=== PATIENT | male | born 1940 | race Caucasian/White ===

== ENCOUNTER → 2017-08-22 | Outpatient (REF) | payer MEDICARE ==
[2017-08-22 15:53] LABS: BASO # 0.1 10^3/uL (0.0-0.2); BASO % 0.7 % (0.0-1.0); EOS # 0.1 10^3/uL (0.0-0.50); EOS % 1.5 % (0.0-3.0); HEMATOCRIT 44.6 % (42.0-52.0); HEMOGLOBIN 14.3 g/dl (13.5-17.5); IMMATURE GRANULOCYTE % 0.4 % (0-3.0); LYMPH % 12.8 % (24.0-44.0); MEAN CORPUSCULAR HEMOGLOBIN 29.6 pg (27.0-33.0); MEAN CORPUSCULAR HGB CONC 32.1 g/dl (32.0-36.5); MEAN CORPUSCULAR VOLUME 92.3 fl (80.0-96.0); MONO # 0.7 10^3/uL (0.0-0.8); NEUTROPHILS # 6.1 10^3/uL (1.8-7.7); NEUTROPHILS % 75.6 % (36.0-66.0); PLATELET COUNT, AUTOMATED 172 10^3/uL (150-450); RED BLOOD COUNT 4.83 10^6/uL (4.30-6.10); RED CELL DISTRIBUTION WIDTH 14.6 % (11.5-14.5); WHITE BLOOD COUNT 8.1 10^3/uL (4.0-10.0)
[2017-08-22 16:09] LABS: ANION GAP 8 MEQ/L (8-16); BLOOD UREA NITROGEN 22 MG/DL (7-18); C REACTIVE PROTEIN QUANTITATIV 0.35 MG/DL (0.00-0.30); CALCIUM LEVEL 9.4 MG/DL (8.8-10.2); CARBON DIOXIDE LEVEL 28 MEQ/L (21-32); CHLORIDE LEVEL 105 MEQ/L (98-107); CREATININE FOR GFR 1.04 MG/DL (0.70-1.30); GLOMERULAR FILTRATION RATE > 60.0 (>42); GLUCOSE, FASTING 88 MG/DL (70-100); POTASSIUM SERUM 4.4 MEQ/L (3.5-5.1); SODIUM LEVEL 141 MEQ/L (136-145)
[2017-08-22 16:18] LABS: ERYTHROCYTE SEDIMENTATION RATE 26 mm/hr (0-20)
== END ==
LOC: M SFHCPLAZ 11:34
DX: M86.9 Osteomyelitis, unspecified (principal)
CPT/HCPCS: 80048

== ENCOUNTER 2018-02-06 06:14 | Day surgery (SDC) | payer MEDICARE ==
[2018-02-05] MEDS: CEFUROXIME 1MG/0.1ML INTRACAMERAL INJ As Ordered ×2 (08:01)
[2018-02-06] MEDS: PROPARACAINE 0.5% OPHTH SOL 15ML OD ×2 (06:55)
[2018-02-06] MEDS: OFLOXACIN 0.3 % (OCUFLOX) OPTH SOL 5ML OD ×2 (06:57)
[2018-02-06] MEDS: TROPICAMIDE 1% OPHTH SOLN 2ML OD ×2 (06:59)
[2018-02-06] MEDS: PHENYLEPHRINE 2.5% OPHTH SOL 2ML OD ×2 (07:01)
[2018-02-06] MEDS ORDERED: MIDAZOLAM INJ 2 MG/2 ML VIAL (J2250) As Ordered ×2 (07:03)
[2018-02-06] MEDS ORDERED: fentaNYL 100 MCG/2 ML INJECTION (J3010) As Ordered ×2 (07:03)
[2018-02-06] MEDS: LIDOCAINE 0.75%/EPINEPHRINE 0.025% IN BSS 1ML SYR INTRACAMERAL (OR ONLY) As Ordered (08:00)
[2018-02-06] MEDS: POVIDONE-IODINE 5% OPHTH PREP SOL 30ML As Ordered ×2 (08:00)
[2018-02-06] MEDS: BALANCED SALT IRRIGATION SOLUTION 500ML BAG (FOR OR EYE MACHINE) As Ordered ×2 (08:00)
[2018-02-06] MEDS: DUOVISC (0.50ML VISCOAT/0.55ML PROVISC) OPHTH KIT As Ordered ×2 (08:01)
== END 2018-02-06 09:05 | disposition home or self-care (01) ==
LOC: M SDC 06:14
DX: H25.11 Age-related nuclear cataract, right eye (principal); Z98.890 Other specified postprocedural states; I10 Essential (primary) hypertension; I50.9 Heart failure, unspecified; R29.898 Other symptoms and signs involving the musculoskeletal system; M12.9 Arthropathy, unspecified; I89.0 Lymphedema, not elsewhere classified; N40.0 Benign prostatic hyperplasia without lower urinary tract symptoms; R32 Unspecified urinary incontinence; Z88.1 Allergy status to other antibiotic agents; Z91.048 Other nonmedicinal substance allergy status; Z79.899 Other long term (current) drug therapy; Z79.01 Long term (current) use of anticoagulants; Z86.14 Personal history of Methicillin resistant Staphylococcus aureus infection; Z87.442 Personal history of urinary calculi; Z92.3 Personal history of irradiation; Z85.46 Personal history of malignant neoplasm of prostate
CPT/HCPCS: 66984

== ENCOUNTER 2018-02-20 10:37 | Day surgery (SDC) | payer MEDICARE ==
[~2018-02-20 10:37] MED LIST: MIDAZOLAM INJ 2 MG/2 ML VIAL (J2250) As Ordered; fentaNYL 100 MCG/2 ML INJECTION (J3010) As Ordered
[2018-02-20] MEDS: PROPARACAINE 0.5% OPHTH SOL 15ML OS (11:35)
[2018-02-20] MEDS: OFLOXACIN 0.3 % (OCUFLOX) OPTH SOL 5ML OS (11:40)
[2018-02-20] MEDS: TROPICAMIDE 1% OPHTH SOLN 2ML OS (11:40)
[2018-02-20] MEDS: PHENYLEPHRINE 2.5% OPHTH SOL 2ML OS (11:40)
[2018-02-20] MEDS: LIDOCAINE 0.75%/EPINEPHRINE 0.025% IN BSS 1ML SYR INTRACAMERAL (OR ONLY) As Ordered (13:07)
[2018-02-20] MEDS: BALANCED SALT IRRIGATION SOLUTION 500ML BAG (FOR OR EYE MACHINE) As Ordered (13:07)
[2018-02-20] MEDS: POVIDONE-IODINE 5% OPHTH PREP SOL 30ML As Ordered (13:07)
[2018-02-20] MEDS: CEFUROXIME 1MG/0.1ML INTRACAMERAL INJ As Ordered (13:07)
[2018-02-20] MEDS: DUOVISC (0.50ML VISCOAT/0.55ML PROVISC) OPHTH KIT As Ordered (13:07)
== END 2018-02-20 14:00 | disposition home or self-care (01) ==
LOC: M SDC 10:37
DX: H25.12 Age-related nuclear cataract, left eye (principal); I50.9 Heart failure, unspecified; I11.0 Hypertensive heart disease with heart failure; B95.62 Methicillin resistant Staphylococcus aureus infection as the cause of diseases classified elsewhere; R29.898 Other symptoms and signs involving the musculoskeletal system; M12.9 Arthropathy, unspecified; I89.0 Lymphedema, not elsewhere classified; C61 Malignant neoplasm of prostate; N39.3 Stress incontinence (female) (male); Z88.6 Allergy status to analgesic agent; Z91.048 Other nonmedicinal substance allergy status; Z79.899 Other long term (current) drug therapy; Z79.01 Long term (current) use of anticoagulants; Z92.3 Personal history of irradiation; Z87.442 Personal history of urinary calculi
CPT/HCPCS: 66984

== ENCOUNTER → 2019-10-13 | Outpatient (REF) | payer MEDICARE ==
[~2019-10-13] MED LIST changes: +BACT800T5 PO; +CART180C3 PO; +CLIN150C14 PO; +DIGO0.123 PO; +ELIQ5TAB PO; +FURO40TA2 PO; +GABA-845 PO; +KLOR20TA42 PO; +LISI2.5T2 PO; +METO50TA7 PO; -MIDAZOLAM INJ 2 MG/2 ML VIAL (J2250) As Ordered; -fentaNYL 100 MCG/2 ML INJECTION (J3010) As Ordered
[2019-10-13 13:51] LABS: AMORPHOUS SEDIMENT SMALL (NEGATIVE); APPEARANCE, URINE CLOUDY (CLEAR); BACTERIA, URINE AUTO 2+ (NEGATIVE); BILIRUBIN, URINE AUTO NEGATIVE (NEGATIVE); BLOOD, URINE BLOOD 2+ (NEGATIVE); COLOR, URINE YELLOW (YELLOW); GLUCOSE, URINE (UA) AUTO NEGATIVE (NEGATIVE); KETONE, URINE AUTO NEGATIVE (NEGATIVE); LEUKOCYTE ESTERASE, URINE AUTO 3+ (NEGATIVE); NITRITE, URINE AUTO NEGATIVE (NEGATIVE); PROTEIN, URINE AUTO NEGATIVE (NEGATIVE); RBC, URINE AUTO 114 /HPF (0-3); SPECIFIC GRAVITY URINE AUTO 1.011 (1.002-1.035); SQUAMOUS EPITHELIAL CELL UR AU 0 /HPF (0-6); UROBILINOGEN, URINE AUTO 0.2 mg/dL (0.0-2.0); WBC, URINE AUTO TNTC /HPF (0-3)
[2019-10-13 14:01] LABS: BASO # 0.1 10^3/uL (0.0-0.2); BASO % 0.8 % (0.0-1.0); EOS # 0.2 10^3/uL (0.0-0.5); EOS % 1.7 % (0.0-3.0); HEMATOCRIT 47.8 % (42.0-52.0); HEMOGLOBIN 15.3 g/dl (13.5-17.5); LYMPH # 1.3 10^3/uL (1.5-5.0); LYMPH % 14.6 % (24.0-44.0); MEAN CORPUSCULAR HEMOGLOBIN 28.9 pg (27.0-33.0); MEAN CORPUSCULAR VOLUME 90.2 fl (80.0-96.0); MONO # 1.3 10^3/uL (0.0-0.8); MONO % 14.2 % (0.0-5.0); NEUTROPHILS # 6.2 10^3/uL (1.5-8.5); NEUTROPHILS % 68.2 % (36.0-66.0); PLATELET COUNT, AUTOMATED 190 10^3/uL (150-450); WHITE BLOOD COUNT 9.2 10^3/uL (4.0-10.0)
[2019-10-13 14:09] LABS: ALBUMIN 3.9 GM/DL (3.2-5.2); ALT/SGPT 30 U/L (12-78); BILIRUBIN,TOTAL 0.4 MG/DL (0.2-1.0); BLOOD UREA NITROGEN 25 MG/DL (7-18); C REACTIVE PROTEIN QUANTITATIV 0.76 MG/DL (0.00-0.30); CALCIUM LEVEL 10.2 MG/DL (8.8-10.2); CARBON DIOXIDE LEVEL 28 MEQ/L (21-32); CHLORIDE LEVEL 103 MEQ/L (98-107); GLOMERULAR FILTRATION RATE > 60.0 (>42); GLUCOSE, FASTING 88 MG/DL (70-100); SODIUM LEVEL 138 MEQ/L (136-145); TOTAL PROTEIN 8.1 GM/DL (6.4-8.2)
[2019-10-13 14:41] LABS: ERYTHROCYTE SEDIMENTATION RATE 9 mm/hr (0-20)
[2019-10-13 15:24] LABS: HEMOGLOBIN A1c 6.6 %
== END ==
LOC: M SFHCPLAZ 11:08
PROVIDERS: ATTEND Internal Medicine Infectious Disease
DX: M86.9 Osteomyelitis, unspecified (principal); N49.2 Inflammatory disorders of scrotum; Z79.899 Other long term (current) drug therapy
CPT/HCPCS: 36415; 80053; 81001; 83036; 85025; 85652; 86140; 87070; 87077; 87088; 87186; G0463

== ENCOUNTER → 2019-12-24 | Outpatient (REF) | payer MEDICARE ==
[2020-01-21 13:01] LABS: APPEARANCE, URINE CLEAR (CLEAR); BACTERIA, URINE AUTO NEGATIVE (NEGATIVE); BILIRUBIN, URINE AUTO NEGATIVE (NEGATIVE); BLOOD, URINE BLOOD NEGATIVE (NEGATIVE); COLOR, URINE YELLOW (YELLOW); GLUCOSE, URINE (UA) AUTO NEGATIVE (NEGATIVE); KETONE, URINE AUTO NEGATIVE (NEGATIVE); LEUKOCYTE ESTERASE, URINE AUTO TRACE (NEGATIVE); MUCUS, URINE SMALL (NEGATIVE); NITRITE, URINE AUTO NEGATIVE (NEGATIVE); PROTEIN, URINE AUTO NEGATIVE (NEGATIVE); RBC, URINE AUTO 2 /HPF (0-3); SPECIFIC GRAVITY URINE AUTO 1.009 (1.002-1.035); SQUAMOUS EPITHELIAL CELL UR AU 0 /HPF (0-6); UROBILINOGEN, URINE AUTO 0.2 mg/dL (0.0-2.0); WBC, URINE AUTO 7 /HPF (0-3)
== END ==
LOC: M SFHCPLAZ 16:07
PROVIDERS: ATTEND Internal Medicine Infectious Disease
DX: R30.0 Dysuria (principal)
CPT/HCPCS: 36415; 81001; 85025; 85652; 86140; 87088; 87186; G0463

== ENCOUNTER 2019-12-31 13:50 | Outpatient (CLI) | payer MEDICARE ==
[~2019-12-31 13:50] MED LIST changes: -LIDOCAINE 1% MDV 20ML VIAL As Ordered ONE
[2019-12-31] MEDS ORDERED: ERTAPENEM 1GM VIAL(INVanz) (J1335 PER 500MG) ONE (15:30)
[2019-12-31] MEDS ORDERED: ERTAPENEM 1GM VIAL(INVanz) (J1335 PER 500MG) As Ordered ONE (15:30)
== END 2019-12-31 16:20 | disposition home or self-care (01) ==
LOC: M INFU 13:50
PROVIDERS: ATTEND Internal Medicine Infectious Disease
DX: N45.4 Abscess of epididymis or testis (principal)
CPT/HCPCS: 36571; 76937; 96365; C1751; J1335; J1642; J1644

== ENCOUNTER → 2019-12-31 | Outpatient (CLI) | payer MEDICARE ==
[~2019-12-31] MED LIST changes: +LIDOCAINE 1% MDV 20ML VIAL As Ordered ONE
--- NOTE | 2020-02-11 08:58 | REP ---
MIDLINE CATHETER INSERTION WITH SITE-RITE: The procedure was performed under the direct supervision of Dr. Godwin. The risks and benefits of the procedure were explained to the patient and informed consent was obtained. PROCEDURE: The left basilic vein was localized using ultrasound guidance. The skin was prepped and draped in a sterile fashion. 1% lidocaine was used as a local anesthetic. Using ultrasound guidance, the basilic vein was cannulated and a 0.018 guidewire was inserted. The needle was removed and a 4/5 Uzbek dilator and peel-away sheath was inserted over the guidewire. A 4.5 Uzbek single lumen catheter was cut to a length of 13 cm. The dilator was removed and the catheter was inserted over the guidewire. The peel-away sheath was removed and the catheter was flushed with heparinized saline as per hospital protocol. The catheter was affixed to the skin and a sterile dressing was applied. The patient tolerated the procedure well and there were no immediate complications. SHALOM
== END ==
LOC: M RAD 13:50 → M IRPRO 13:50
PROVIDERS: ATTEND Internal Medicine Infectious Disease
DX: N45.4 Abscess of epididymis or testis (principal)

== ENCOUNTER 2021-01-16 16:01 | Emergency (ER) | payer MEDICARE ==
[~2021-01-16 16:01] MED LIST changes: -CLIN150C14 PO; +CLIN150C17 PO; +GABA-283 PO; -GABA-845 PO; -LISI2.5T2 PO; +LISI2.5T9 PO
[2021-01-16] MEDS ORDERED: MAGN400C PO (20:35)
--- NOTE | 2021-01-16 20:37 | REPVR ---
PROCEDURE INFORMATION: Exam: CT Abdomen And Pelvis Without Contrast Exam date and time: 01/16/2021 7:59 PM Age: 80 years old Clinical indication: Abdominal pain; Additional info: Bilateral flank pain/urinary retention TECHNIQUE: Imaging protocol: Computed tomography of the abdomen and pelvis without contrast. Radiation optimization: All CT scans at this facility use at least one of these dose optimization techniques: automated exposure control; mA and/or kV adjustment per patient size (includes targeted exams where dose is matched to clinical indication); or iterative reconstruction. COMPARISON: No relevant prior studies available. FINDINGS: Lungs: Bibasilar atelectasis. Heart: Cardiomegaly. Liver: There are cysts in the liver measuring up to 1.9 cm located in segment 2 of the left lobe. No complex features demonstrated. No follow-up suggested. Liver otherwise unremarkable. Gallbladder and bile ducts: Sludge/gravel layering dependently in the gallbladder along with punctate calculi. No evidence of cholecystitis. Pancreas: Normal. No ductal dilation. Spleen: Normal. No splenomegaly. Adrenal glands: There is bilateral adrenal hyperplasia. Kidneys and ureters: Bilateral nonobstructive calculi in the kidneys. Bilateral moderate hydroureteronephrosis to the level of the UV junctions. No obstructing mass or calculus demonstrated. Simple renal cysts measure up to 6.8 cm in the left kidney. No follow-up suggested. Stomach and bowel: There is increased feces throughout the colon consistent with constipation. Impacted feces in the rectum with mild thickening of the rectal wall which may indicate stercoral colitis. Moderate diverticulosis is present in the distal colon. No diverticulitis. Appendix: No evidence of appendicitis. Intraperitoneal space: Unremarkable. No free air. No significant fluid collection. Vasculature: The aortoiliac vessels demonstrate mild atherosclerotic calcification. Lymph nodes: Unremarkable. No enlarged lymph nodes. Urinary bladder: Suprapubic catheter demonstrated in the urinary bladder. Moderate bladder distention. Otherwise unremarkable as visualized. Reproductive: Status post prostatectomy. Soft tissue fullness in the prostatic bed demonstrated. Clinical correlation to exclude recurrence suggested. Bones/joints: Lumbarized 1st sacral segment. Severe central spinal stenosis L2-L3, moderate to severe central spinal stenosis L3-L4, moderate central spinal stenosis L4-L5. Bulging annulus L5-S1. Marked resorptive changes in the right femoral head with lateral subluxation of the proximal femur from the acetabulum. Shallow acetabulum demonstrating marked degenerative change. The spine demonstrates moderate degenerative changes. Soft tissues: Unremarkable. Other findings: Osteoporosis. IMPRESSION: 1. Cardiomegaly. 2. There are cysts in the liver as described above. No complex features demonstrated. No follow-up suggested. Liver otherwise unremarkable. 3. Sludge/gravel layering dependently in the gallbladder along with punctate calculi. No evidence of cholecystitis. 4. There is bilateral adrenal hyperplasia. 5. Bilateral nonobstructive calculi in the kidneys. 6. Bilateral moderate hydroureteronephrosis to the level of the UV junctions. No obstructing mass or calculus demonstrated. Moderate bladder distention status post placement of a suprapubic catheter. Bladder outlet obstruction to be considered clinically. 7. Status post prostatectomy. Soft tissue fullness in the prostatic bed demonstrated. Clinical correlation to exclude recurrence suggested. 8. There is increased feces throughout the colon consistent with constipation. Impacted feces in the rectum with mild thickening of the rectal wall which may indicate stercoral colitis. 9. Moderate diverticulosis is present in the distal colon. No diverticulitis. COMMENTS: Consistent with the [employer]'s Incidental Findings Committee white paper (J Am Emma Radiol 2018): Any incidental renal lesion less than 1 cm or classified as too small to characterize, or any incidental cystic renal lesion characterized as simple-appearing, is likely benign. No follow-up imaging is recommended for these lesions per consensus recommendations based on imaging criteria. Electronically signed by: Harvinder Mancini On 01/16/2021 20:37:25 PM
[2021-01-16] MEDS ORDERED: CIPR-249 PO (22:21)
[2021-01-16] MEDS ORDERED: CIPROFLOXACIN 500MG TABLET PO ONE (22:25)
[2021-01-16 22:50] VITALS: BP 140/69
--- NOTE | 2021-01-18 08:21 | ED PDOC ---
Post-Departure Follow-Up dr brody wilkins faxed formal report of ct abd/p for fu Linda Can MD Jan 18, 2021 08:21
== END 2021-01-16 22:53 | disposition home or self-care (01) ==
LOC: M ED 16:01 → EDBD 16:01 → M ED 22:53
DX: T83.098A Other mechanical complication of other urinary catheter, initial encounter (principal); I10 Essential (primary) hypertension; Z85.46 Personal history of malignant neoplasm of prostate; Z87.442 Personal history of urinary calculi; I51.7 Cardiomegaly; N20.0 Calculus of kidney; N13.1 Hydronephrosis with ureteral stricture, not elsewhere classified; N28.1 Cyst of kidney, acquired; K76.89 Other specified diseases of liver; K80.20 Calculus of gallbladder without cholecystitis without obstruction; E27.8 Other specified disorders of adrenal gland; K56.41 Fecal impaction; K57.30 Diverticulosis of large intestine without perforation or abscess without bleeding; Z79.01 Long term (current) use of anticoagulants; Z79.899 Other long term (current) drug therapy; Z91.89 Other specified personal risk factors, not elsewhere classified; Z88.6 Allergy status to analgesic agent

== ENCOUNTER 2021-02-06 13:50 | Outpatient (RCR) | payer MEDICARE ==
[~2021-02-06 13:50] MED LIST changes: +CIPR-249 PO; -KLOR20TA42 PO; +MAGN400C PO; +POTA-141 PO
== END 2021-02-16 ==
LOC: M PT 13:50
PROVIDERS: ATTEND Family Medicine
DX: I89.0 Lymphedema, not elsewhere classified (principal)

== ENCOUNTER 2021-03-07 12:07 | Outpatient (RCR) | payer MEDICARE | END 2021-03-19 | LOC: M PT 12:07 | PROVIDERS: ATTEND Family Medicine | DX: I89.0 Lymphedema, not elsewhere classified (principal) ==

== ENCOUNTER → 2021-08-22 | Outpatient (REF) | payer MEDICARE ==
[2021-08-22 14:15] LABS: APPEARANCE, URINE CLOUDY (CLEAR); BACTERIA, URINE AUTO 3+ (NEGATIVE); BILIRUBIN, URINE AUTO NEGATIVE (NEGATIVE); BLOOD, URINE BLOOD 3+ (NEGATIVE); COLOR, URINE YELLOW (YELLOW); GLUCOSE, URINE (UA) AUTO NEGATIVE (NEGATIVE); KETONE, URINE AUTO NEGATIVE (NEGATIVE); LEUKOCYTE ESTERASE, URINE AUTO 3+ (NEGATIVE); MUCUS, URINE SMALL (NEGATIVE); NITRITE, URINE AUTO POSITIVE (NEGATIVE); PROTEIN, URINE AUTO 1+ mg/dL (NEGATIVE); RBC, URINE AUTO TNTC /HPF (0-3); SPECIFIC GRAVITY URINE AUTO 1.008 (1.002-1.035); SQUAMOUS EPITHELIAL CELL UR AU 0 /HPF (0-6); UROBILINOGEN, URINE AUTO 0.2 mg/dL (0.0-2.0); WBC, URINE AUTO 120 /HPF (0-3)
== END ==
LOC: M SFHCPLAZ 13:11
PROVIDERS: ATTEND Internal Medicine Infectious Disease
DX: N49.2 Inflammatory disorders of scrotum (principal)

== ENCOUNTER → 2022-03-26 | Outpatient (REF) | payer MEDICARE ==
[2022-03-26 20:05] LABS: APPEARANCE, URINE MANUAL CLEAR (CLEAR); COLOR, URINE MANUAL YELLOW (YELLOW)
[2022-03-26 20:06] LABS: BILIRUBIN, URINE MANUAL NEGATIVE (NEGATIVE); BLOOD URINE MANUAL POSITIVE (NEGATIVE); GLUCOSE, URINE (UA) MANUAL NEGATIVE (NEGATIVE); KETONE, URINE MANUAL NEGATIVE (NEGATIVE); LEUKOCYTE ESTERASE, URINE MAN POSITIVE (NEGATIVE); NITRITE, URINE MANUAL NEGATIVE (NEGATIVE); PROTEIN, URINE MANUAL NEGATIVE (NEGATIVE); UROBILINOGEN, URINE MANUAL NORMAL (NORMAL)
[2022-03-26 20:38] LABS: RBC, URINE 40-50 /hpf (0-3); SQUAMOUS EPITHELIAL CELL URINE SMALL AMOUNT /hpf (SMALL AMT); WBC, URINE 40-50 /hpf (0-3)
[2022-03-26 20:39] LABS: BACTERIA, URINE SMALL AMOUNT; HYALINE CAST, URINE NONE SEEN /lpf (0-1)
== END ==
LOC: M SFHCPLAZ 16:53
PROVIDERS: ATTEND Internal Medicine Infectious Disease
DX: N49.2 Inflammatory disorders of scrotum (principal)

== ENCOUNTER 2023-12-09 09:18 | Emergency (ER) | payer MEDICARE ==
[~2023-12-09] VITALS: Ht 182.9 cm; Wt 108.3 kg
[~2023-12-09 09:18] MED LIST changes: -GABA-283 PO; +GABA-284 PO
[2023-12-09] MEDS ORDERED: XARE15TA PO (09:55)
[2023-12-09 11:36] VITALS: BP 160/67; TEMP 97.5; O2SAT 96
== END 2023-12-09 11:44 | disposition home or self-care (01) ==
LOC: EDBD 09:18 → M ED 09:18
DX: R04.0 Epistaxis (principal); I48.91 Unspecified atrial fibrillation; I50.22 Chronic systolic (congestive) heart failure; I11.0 Hypertensive heart disease with heart failure; Z85.46 Personal history of malignant neoplasm of prostate; Z88.8 Allergy status to other drugs, medicaments and biological substances; Z91.040 Latex allergy status; Z79.899 Other long term (current) drug therapy; Z79.01 Long term (current) use of anticoagulants